=== PATIENT | female | born 2005 | race Native Hawaiian/Other Pacific Islander ===

== ENCOUNTER 2024-04-15 13:51 | Emergency (ER) | payer OTHER, BC ==
[2024-04-15 14:17] VITALS: PULSE 92; RESP 18
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
[2024-04-15] MEDS: ACETAMINOPHEN TAB 500 MG TAB PO STA (15:23)
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
[2024-04-15 16:22] VITALS: BP 113/70; TEMP 98.4
== END 2024-04-15 16:45 | disposition home or self-care (01) ==
LOC: EC 13:51
DX: M79.602 Pain in left arm (principal); Z88.0 Allergy status to penicillin; V89.2XXA Person injured in unspecified motor-vehicle accident, traffic, initial encounter; Y92.410 Unspecified street and highway as the place of occurrence of the external cause
CPT/HCPCS: 99284